=== PATIENT | male | born 1950 | race Two or more races ===

== ENCOUNTER 2020-04-03 04:50 | Day surgery (SDC) | payer OTHER | END 2020-04-03 13:15 | disposition home or self-care (01) | LOC: CIR.AMB 04:50 | PROVIDERS: ATTEND Specialist | DX: K40.90 Unilateral inguinal hernia, without obstruction or gangrene, not specified as recurrent (principal); Z20.828 Contact with and (suspected) exposure to other viral communicable diseases ==

== ENCOUNTER 2020-07-31 04:50 | Day surgery (SDC) | payer OTHER ==
[~2020-07-31 04:50] MED LIST: TAMS0.4C PO
== END 2020-07-31 14:30 | disposition home or self-care (01) ==
LOC: CIR.AMB 04:50
PROVIDERS: ATTEND Specialist
DX: K40.91 Unilateral inguinal hernia, without obstruction or gangrene, recurrent (principal); Z20.822 Contact with and (suspected) exposure to COVID-19

== ENCOUNTER 2023-11-10 10:48 | Outpatient (CLI) | payer OTHER | END 2023-11-10 10:50 | disposition home or self-care (01) | LOC: SONOGRAMA 10:48 | PROVIDERS: ATTEND Pathology Anatomic Pathology & Clinical Pathology | DX: D34 Benign neoplasm of thyroid gland (principal); E07.89 Other specified disorders of thyroid; R59.0 Localized enlarged lymph nodes ==